=== PATIENT | male | born 1995 | race Two or more races ===

== ENCOUNTER 2024-06-04 07:28 | Emergency (ER) | payer MEDICAID ==
[~2024-06-04] VITALS: Ht 175.3 cm; Wt 70.3 kg
[2024-06-04] MEDS ORDERED: MORPHINE SULFATE INJ 4 MG/ML DISP.SYRIN ONE (08:13)
[2024-06-04] MEDS ORDERED: ONDANSETRON HCL/PF 4 MG/2 ML VIAL ONE (08:13)
[2024-06-04] MEDS: IV NS 0.9% 500 ML BAG IV ONE (08:32)
[2024-06-04] MEDS: ONDANSETRON HCL/PF 4 MG/2 ML VIAL IVP ONE (08:34)
[2024-06-04] MEDS: MORPHINE SULFATE INJ 2 MG/ML DISP.SYRIN IV ONE (08:36)
[2024-06-04 08:41] LABS: BASOPHILS % (AUTO) 0.7 % (0.0-2.0); EOSINOPHILS # (AUTO) 0.3 K/uL (0.0-0.7); EOSINOPHILS % (AUTO) 4.5 % (0.0-6.0); HEMATOCRIT 46 % (39-51); HEMOGLOBIN 15.5 g/dL (13.5-17.5); LYMPHOCYTES # (AUTO) 1.1 K/uL (0.8-4.8); MEAN CORPUSCULAR HEMOGLOBIN 30 PG (26.0-33.0); MEAN CORPUSCULAR HGB CONC 34 g/dl (31.0-36.0); MEAN CORPUSCULAR VOLUME 89 fL (80-96); MONOCYTES # (AUTO) 0.5 K/uL (0.1-1.30); MONOCYTES % (AUTO) 8.5 % (2.0-12.0); NEUTROPHILS # (AUTO) 3.8 K/uL (1.8-8.9); NEUTROPHILS % (AUTO) 67.3 % (43.0-81.0); PLATELET COUNT (AUTO) 152 K/uL (150-450); RED BLOOD CELL COUNT(AUTO) 5.14 MIL/uL (4.5-6.0); RED CELL DISTRIBUTION WIDTH 12.4 % (11.5-15.0); WHITE BLOOD COUNT (AUTO) 5.6 K/uL (4.3-11.0)
[2024-06-04 08:50] LABS: CALCIUM, SERUM 8.9 mg/dL (8.5-10.1); CREATININE 0.8 mg/dL (0.6-1.3); POTASSIUM 3.9 mmol/L (3.5-5.1)
[2024-06-04] MEDS ORDERED: IOHEXOL-350 100 ML VIAL IV ONE (09:10)
[2024-06-04] MEDS ORDERED: IV NS 0.9% 250 ML IV ONE (09:10)
[2024-06-04] MEDS ORDERED: NAPR-1164 PO (10:08)
[2024-06-04 10:41] VITALS: BP 131/81; TEMP 98.4; O2SAT 99
== END 2024-06-04 10:53 | disposition home or self-care (01) ==
LOC: ER 07:31
DX: S13.4XXA Sprain of ligaments of cervical spine, initial encounter (principal); S20.219A Contusion of unspecified front wall of thorax, initial encounter; S00.83XA Contusion of other part of head, initial encounter; V43.52XA Car driver injured in collision with other type car in traffic accident, initial encounter; Y93.89 Activity, other specified; Y92.488 Other paved roadways as the place of occurrence of the external cause; Y99.8 Other external cause status
CPT/HCPCS: 99285; 72125; 96374; 96361; 96375; 93005; 71260; 70450; 70486; 74177; 85025; 80048; 36415; J2270; J2405; J7050; J7040; A6403; Q9967